=== PATIENT | female | born 1960 | race Caucasian/White ===

== ENCOUNTER → 2020-11-22 | Outpatient (CLI) | payer MEDICARE, OTHER ==
[2020-11-22 10:21] LABS: BUN/CREATININE RATIO 23 (0-10)
== END ==
LOC: LAB 09:36
PROVIDERS: Internal Medicine
DX: E26.9 Hyperaldosteronism, unspecified (principal)
CPT/HCPCS: 36415; 80053

== ENCOUNTER → 2021-05-24 | Outpatient (CLI) | payer MEDICARE | LOC: LAB 05-22 09:31 | DX: E26.9 Hyperaldosteronism, unspecified (principal) | CPT/HCPCS: 36415; 82533 ==

== ENCOUNTER → 2021-07-20 | Outpatient (CLI) | payer MEDICARE | LOC: LAB 08:03 | DX: D35.00 Benign neoplasm of unspecified adrenal gland (principal) | CPT/HCPCS: 36415; 82533 ==

== ENCOUNTER → 2021-09-08 | Outpatient (CLI) | payer MEDICARE | LOC: LAB 11:34 | PROVIDERS: Internal Medicine | DX: R79.89 Other specified abnormal findings of blood chemistry (principal); N18.9 Chronic kidney disease, unspecified | CPT/HCPCS: 36415; 82530; 82570 ==

== ENCOUNTER → 2021-10-12 | Outpatient (CLI) | payer MEDICARE | LOC: KOH-I 10:07 | DX: M47.26 Other spondylosis with radiculopathy, lumbar region (principal) | CPT/HCPCS: 72100 ==

== ENCOUNTER → 2021-10-25 | Outpatient (CLI) | payer MEDICARE | LOC: KOH-I 12:42 | DX: M54.6 Pain in thoracic spine (principal); R19.00 Intra-abdominal and pelvic swelling, mass and lump, unspecified site; M47.814 Spondylosis without myelopathy or radiculopathy, thoracic region | CPT/HCPCS: 72070 ==

== ENCOUNTER → 2021-11-07 | Outpatient (CLI) | payer MEDICARE | LOC: CT 10:14 | DX: R19.00 Intra-abdominal and pelvic swelling, mass and lump, unspecified site (principal) | CPT/HCPCS: 36415; 82565; 84520; Q9967 ==

== ENCOUNTER 2021-11-17 08:16 | Emergency (ER) | payer MEDICARE ==
[2021-11-17 08:49] LABS: HEMOGLOBIN 15.4 gm/dl (12.3-15.3); RED BLOOD COUNT 5.04 M/UL (4.00-5.10); WHITE BLOOD COUNT 6.2 K/UL (4.5-11.0)
[2021-11-17 09:15] LABS: BUN/CREATININE RATIO 25 (0-10)
[2021-11-17] MEDS ORDERED: BENICAR20 MG PO (11:00)
== END 2021-11-17 11:19 | disposition home or self-care (01) ==
LOC: ER1 08:16
PROVIDERS: Emergency Medicine
DX: I10 Essential (primary) hypertension (principal); E78.5 Hyperlipidemia, unspecified
CPT/HCPCS: 71045; 80053; 81001; 82550; 82553; 84484; 85025; 93005; 99284

== ENCOUNTER → 2021-11-23 | Outpatient (CLI) | payer MEDICARE ==
[~2021-11-23] MED LIST: BENICAR20 MG PO
== END ==
LOC: US 11-16 15:00
DX: R19.00 Intra-abdominal and pelvic swelling, mass and lump, unspecified site (principal); R22.9 Localized swelling, mass and lump, unspecified
CPT/HCPCS: 76830; 76856

== ENCOUNTER → 2021-12-20 | Outpatient (CLI) | payer MEDICARE | LOC: KOH-I 15:36 | DX: M51.16 Intervertebral disc disorders with radiculopathy, lumbar region (principal); M48.061 Spinal stenosis, lumbar region without neurogenic claudication | CPT/HCPCS: 72148 ==